=== PATIENT | male | born 1995 | race African-American/Black ===

== ENCOUNTER 2016-08-30 09:23 | Emergency (ER) | payer MEDICAID ==
[~2016-08-30] VITALS: Ht 190.5 cm; Wt 85.7 kg
[2016-08-30 10:35] VITALS: BP 154/93
== END 2016-08-30 10:56 | disposition home or self-care (01) ==
LOC: ER 09:23
DX: J20.9 Acute bronchitis, unspecified (principal); N39.0 Urinary tract infection, site not specified; J02.9 Acute pharyngitis, unspecified; F12.10 Cannabis abuse, uncomplicated; R06.02 Shortness of breath
CPT/HCPCS: 93005

== ENCOUNTER 2021-11-19 00:59 | Emergency (ER) | payer SELFPAY ==
[~2021-11-19] VITALS: Ht 190.5 cm; Wt 93.4 kg
[2021-11-19 02:33] VITALS: BP 175/94
[2021-11-19] MEDS ORDERED: KETOROLAC TROMETH 60MG/2ML VIAL IM ONE (03:00)
== END 2021-11-19 03:25 | disposition home or self-care (01) ==
LOC: ER 01:02
DX: S83.92XA Sprain of unspecified site of left knee, initial encounter (principal); F12.10 Cannabis abuse, uncomplicated; X50.1XXA Overexertion from prolonged static or awkward postures, initial encounter; Y93.89 Activity, other specified; Y92.89 Other specified places as the place of occurrence of the external cause; Y99.8 Other external cause status
CPT/HCPCS: 73562; 96372; 99283; J1885